=== PATIENT | female | born 1975 | race African-American/Black ===

== ENCOUNTER 2020-07-21 02:03 | Emergency (ER) | payer SELFPAY ==
[~2020-07-21] VITALS: Ht 167.6 cm; Wt 66.0 kg
[2020-07-21] MEDS ORDERED: OLANZAPINE 10 MG/VIAL IM STA (03:40)
[2020-07-21 04:27] LABS: HEMATOCRIT. 37.4 % (36.0-48.0); HEMOGLOBIN. 12.6 g/dL (12.0-16.0); MEAN CORPUSCULAR HEMOGLOBIN 29.5 pg (28.0-32.0); MEAN CORPUSCULAR VOLUME 87.5 fL (81.0-99.0); MEAN PLATELET VOLUME 8.4 fl (7.4-10.4); PLATELET 320 x1000/uL (130-400); RED BLOOD CELL COUNT 4.27 mill/uL (4.2-5.4); RED CELL DISTRIBUTION WIDTH 14.2 % (11.6-14.6)
[2020-07-21 04:41] LABS: CHLORIDE 94 mEq/L (98-107)
[2020-07-21 04:45] LABS: ETHANOL BLOOD < 10 mg/dL; HCG SCREEN NEGATIVE
[2020-07-21 05:27] LABS: PLATELET ESTIMATE NORMAL
[2020-07-21] MEDS ORDERED: ZIPRASIDONE MESYLATE 20MG/VIAL IM ONE (05:30)
[2020-07-21 07:04] LABS: CLARITY URINE CLEAR (CLEAR); COLOR URINE YELLOW (YELLOW); KETONES URINE 3+ (NEGATIVE); LEUKOCYTE ESTERASE URINE NEGATIVE (NEGATIVE); NITRITE URINE NEGATIVE (NEGATIVE); OCCULT BLOOD URINE 1+ (NEGATIVE); PH URINE 5.5 (4.5-8.0); PROTEIN URINE 3+ (NEGATIVE); SPECIFIC GRAVITY URINE 1.029 (1.005-1.030); UROBILINOGEN URINE 0.2 E.U./dL (0.2-1.0)
[2020-07-21 09:16] LABS: METHADONE URINE SCREEN NEGATIVE (NEGATIVE); OPIATES URINE SCREEN NEGATIVE (NEGATIVE); PHENCYCLIDINE URINE SCREEN NEGATIVE (NEGATIVE)
[2020-07-21 09:17] LABS: *AMPHETAMINES SCREEN URINE PRESUMTIVE POSITIVE (NEGATIVE); *BARBITURATES SCREEN URINE NEGATIVE (NEGATIVE); *BENZODIAZEPINES SCREEN URINE NEGATIVE (NEGATIVE); *COCAINE SCREEN URINE PRESUMTIVE POSITIVE (NEGATIVE); CANNABINOID URINE SCREEN PRESUMTIVE POSITIVE (NEGATIVE)
[2020-07-21] MEDS ORDERED: OLANZAPINE 10 MG/VIAL IM ONE (12:30)
[2020-07-21] MEDS ORDERED: LORAZEPAM 2MG/ML CPJ IM STA (12:30)
[2020-07-21 18:56] VITALS: BP 148/84
== END 2020-07-21 18:58 | disposition home or self-care (01) ==
LOC: ER 02:03 → EDBD 02:03 → ER 18:58
DX: T40.5X1A Poisoning by cocaine, accidental (unintentional), initial encounter (principal); T43.621A Poisoning by amphetamines, accidental (unintentional), initial encounter; G92 Toxic encephalopathy; F23 Brief psychotic disorder; F12.10 Cannabis abuse, uncomplicated; Z78.1 Physical restraint status; Y92.018 Other place in single-family (private) house as the place of occurrence of the external cause
CPT/HCPCS: 36415; 80053; 80305; 80307; 80320; 80329; 81003; 82962; 84703; 85025; 87426; 96372; 99285; J2060; J3486; J3490; Z7610; G0480